=== PATIENT | female | born 1990 | race Two or more races ===

== ENCOUNTER → 2018-05-18 | Outpatient (CLI) | payer BC ==
[2018-05-18 11:39] LABS: Basophils # (auto) 0 uL; Basophils % (auto) 0.6 % (0.0-2.0); Eosinophils # (auto) 0.2 uL; Eosinophils % (auto) 2.9 % (0.0-7.0); Hematocrit 36.4 % (36.0-46.0); Hemoglobin 12.2 g/dL (12.2-16.2); Lymphocytes # (auto) 2.5 uL; Lymphocytes % (auto) 32.9 % (10.0-50.0); Mean Corpuscular Hemoglobin 30.7 pg (28.0-32.0); Mean Corpuscular Hgb Conc. 33.4 g/dL (32.0-36.0); Mean Corpuscular Volume 91.8 fL (80.0-100.0); Monocytes # (auto) 0.4 uL; Monocytes % (auto) 5.8 % (0.0-12.0); Neutrophils # (auto) 4.3 uL; Neutrophils % (auto) 57.8 % (37.0-80.0); Platelet Count (auto) 230 10^3/uL (140-450); Red Blood Cells 3.97 10^6/uL (4.0-5.20); Red Cell Distribution Width 13.5 % (11.8-14.3); White Blood Cell 7.5 10^3/uL (4.4-10.8)
[2018-05-18 12:10] LABS: Alcohol, Urine < 3.0 mg/dL (0-5); Amphetamine Screen, Urine NEGATIVE (NEGATIVE); Barbiturate Scree,Urine NEGATIVE (NEGATIVE); Benzodiazephine Screen, Urine NEGATIVE (NEGATIVE); Cannabinoid Screen, Urine NEGATIVE (NEGATIVE); Cocaine Screen, Urine NEGATIVE (NEGATIVE); Opiate Scree,Urine NEGATIVE (NEGATIVE); Phencyclidine Screen, Urine NEGATIVE (NEGATIVE)
[2018-05-19 04:06] LABS: RPR Non Reactive (Non Reactive)
== END | disposition home or self-care (01) ==
LOC: LAB 10:26
PROVIDERS: ATTEND Obstetrics & Gynecology
DX: Z34.80 Encounter for supervision of other normal pregnancy, unspecified trimester (principal); Z31.430 Encounter of female for testing for genetic disease carrier status for procreative management; Z20.2 Contact with and (suspected) exposure to infections with a predominantly sexual mode of transmission; Z3A.00 Weeks of gestation of pregnancy not specified
CPT/HCPCS: 36415; 80307; 81220; 84702; 85025; 86592; 86703; 86762; 86850; 86900; 86901; 87086; 87340

== ENCOUNTER → 2018-08-08 | Outpatient (CLI) | payer BC | END | disposition home or self-care (01) | LOC: LAB 12:19 | PROVIDERS: ATTEND Obstetrics & Gynecology | DX: O98.812 Other maternal infectious and parasitic diseases complicating pregnancy, second trimester (principal); Z3A.20 20 weeks gestation of pregnancy ==

== ENCOUNTER → 2018-09-28 | Outpatient (CLI) | payer BC ==
[2018-09-28 08:53] LABS: Basophils # (auto) 0.1 uL; Basophils % (auto) 0.7 % (0.0-2.0); Eosinophils # (auto) 0.3 uL; Eosinophils % (auto) 3.1 % (0.0-7.0); Hematocrit 30.4 % (36.0-46.0); Hemoglobin 10.1 g/dL (12.2-16.2); Lymphocytes # (auto) 3.4 uL; Lymphocytes % (auto) 31.3 % (10.0-50.0); Mean Corpuscular Hgb Conc. 33.2 g/dL (32.0-36.0); Mean Corpuscular Volume 87.6 fL (80.0-100.0); Monocytes # (auto) 0.6 uL; Monocytes % (auto) 5.2 % (0.0-12.0); Neutrophils # (auto) 6.5 uL; Neutrophils % (auto) 59.7 % (37.0-80.0); Nucleated Red Blood Cells % 0.1 %; Platelet Count (auto) 205 10^3/uL (140-450); Red Blood Cells 3.47 10^6/uL (4.0-5.20); Red Cell Distribution Width 13.5 % (11.8-14.3); White Blood Cell 10.9 10^3/uL (4.4-10.8)
== END | disposition home or self-care (01) ==
LOC: LAB 08:31
PROVIDERS: ATTEND Obstetrics & Gynecology
DX: O99.810 Abnormal glucose complicating pregnancy (principal); Z3A.27 27 weeks gestation of pregnancy
CPT/HCPCS: 36415; 82951; 85025

== ENCOUNTER → 2018-11-14 | Outpatient (CLI) | payer BC | END | disposition home or self-care (01) | LOC: LAB 16:03 | PROVIDERS: ATTEND Obstetrics & Gynecology | DX: O23.593 Infection of other part of genital tract in pregnancy, third trimester (principal); Z3A.35 35 weeks gestation of pregnancy | CPT/HCPCS: 87081 ==

== ENCOUNTER → 2018-11-15 | Outpatient (CLI) | payer BC ==
[2018-11-16 06:06] LABS: RPR Non Reactive (Non Reactive)
== END | disposition home or self-care (01) ==
LOC: LAB 14:22
PROVIDERS: ATTEND Obstetrics & Gynecology
DX: Z34.83 Encounter for supervision of other normal pregnancy, third trimester (principal); Z3A.35 35 weeks gestation of pregnancy
CPT/HCPCS: 84112; 86592

== ENCOUNTER → 2018-11-27 | Outpatient (CLI) | payer BC ==
[2018-11-27 09:14] LABS: Basophils # (auto) 0.1 uL; Basophils % (auto) 0.9 % (0.0-2.0); Eosinophils # (auto) 0.3 uL; Eosinophils % (auto) 3.2 % (0.0-7.0); Hematocrit 34.8 % (36.0-46.0); Hemoglobin 11.3 g/dL (12.2-16.2); Lymphocytes # (auto) 3.2 uL; Lymphocytes % (auto) 36.4 % (10.0-50.0); Mean Corpuscular Hemoglobin 28.4 pg (28.0-32.0); Mean Corpuscular Hgb Conc. 32.5 g/dL (32.0-36.0); Mean Corpuscular Volume 87.4 fL (80.0-100.0); Monocytes # (auto) 0.6 uL; Monocytes % (auto) 6.3 % (0.0-12.0); Neutrophils # (auto) 4.7 uL; Neutrophils % (auto) 53.2 % (37.0-80.0); Platelet Count (auto) 184 10^3/uL (140-450); Red Blood Cells 3.98 10^6/uL (4.0-5.20); White Blood Cell 8.9 10^3/uL (4.4-10.8)
== END | disposition home or self-care (01) ==
LOC: LAB 09:04
PROVIDERS: ATTEND Obstetrics & Gynecology
DX: Z34.83 Encounter for supervision of other normal pregnancy, third trimester (principal); Z3A.37 37 weeks gestation of pregnancy
CPT/HCPCS: 36415; 85025

== ENCOUNTER 2018-12-12 02:05 | Inpatient (IN) | payer BC ==
[~2018-12-12] VITALS: Ht 149.9 cm; Wt 75.3 kg
[2018-12-12] MEDS ORDERED: LACTATED RINGER'S 1,000 ML IV SCH (02:32)
[2018-12-12] MEDS ORDERED: LACT. RINGERS/OXYTOCIN 20UNITS 1,000 ML IV SCH ×2 (02:32→05:42)
[2018-12-12] MEDS ORDERED: PHISODERM TOP SOLN 240ML BTL TOP PRN (02:45)
[2018-12-12] MEDS ORDERED: DERMOPLAST 60ML BOTTLE TOP PRN (02:45)
[2018-12-12] MEDS ORDERED: WITCH HAZEL-GLYCERIN PAD TOP PRN (02:45)
[2018-12-12] MEDS ORDERED: METHYLERGONOVINE MALEATE 0.2 MG/ML AMP IM PRN (02:45)
[2018-12-12] MEDS ORDERED: LIDOCAINE 2%HCL (LOCAL ANESTH.) INJ 20ML MDV ID PRN (02:45)
[2018-12-12 03:18] LABS: Basophils # (auto) 0.1 uL; Basophils % (auto) 0.7 % (0.0-2.0); Eosinophils # (auto) 0.1 uL; Eosinophils % (auto) 1.4 % (0.0-7.0); Hematocrit 37.1 % (36.0-46.0); Hemoglobin 12.4 g/dL (12.2-16.2); Lymphocytes # (auto) 3.1 uL; Lymphocytes % (auto) 30.9 % (10.0-50.0); Mean Corpuscular Hemoglobin 28.1 pg (28.0-32.0); Mean Corpuscular Hgb Conc. 33.3 g/dL (32.0-36.0); Mean Corpuscular Volume 84.5 fL (80.0-100.0); Monocytes # (auto) 0.7 uL; Monocytes % (auto) 6.9 % (0.0-12.0); Neutrophils % (auto) 60.1 % (37.0-80.0); Nucleated Red Blood Cells % 0.2 %; Platelet Count (auto) 189 10^3/uL (140-450); Red Blood Cells 4.39 10^6/uL (4.0-5.20)
[2018-12-12 03:31] LABS: INR < 0.93 (0.9-1.15); Partial Thromboplastin Time 26.5 sec (23.64-32.05)
[2018-12-12 03:34] LABS: BUN/Creatinine Ratio 14.1; Calcium 8.8 mg/dL (8.5-10.1); Potassium 3.9 mmol/L (3.5-5.1)
[2018-12-12 03:37] LABS: Bilirubin, Total 0.4 mg/dL (0.2-1.0)
[2018-12-12] MEDS ORDERED: LACT. RINGERS/OXYTOCIN 20UNITS 500 ML IV ONE (04:42)
[2018-12-12] MEDS ORDERED: ACETAMINOPHEN 325 MG TAB PO PRN (04:45)
[2018-12-12] MEDS: IBUPROFEN 600 MG TAB PO PRN ×3 (05:04→16:26)
[2018-12-12] MEDS ORDERED: FERR-7 PO (06:39)
[2018-12-12] MEDS ORDERED: PREN-96 PO (06:39)
[2018-12-12 06:57] VITALS: BP 122/82
[2018-12-12 11:00] VITALS: BP 138/89
[2018-12-12 15:00] VITALS: BP 115/65
[2018-12-12 19:00] VITALS: BP 121/76
[2018-12-12 23:00] VITALS: BP 134/85
[2018-12-13 03:00] VITALS: BP 122/71
[2018-12-13 06:54] VITALS: BP 121/78
[2018-12-13] MEDS: IBUPROFEN 600 MG TAB PO PRN (06:57)
[2018-12-13 07:07] LABS: RPR Non Reactive (Non Reactive)
[2018-12-13 11:00] VITALS: BP 121/65
== END 2018-12-13 13:10 | disposition home or self-care (01) | DRG 807 ==
LOC: OBSVTOIN 02:05 → LDRP 02:05
PROVIDERS: ADMIT Obstetrics & Gynecology; ATTEND Obstetrics & Gynecology
PROC: 10E0XZZ Delivery of Products of Conception, External Approach (ICD-10-PCS; principal; 2018-12-12)
DX: O70.0 First degree perineal laceration during delivery (principal); Z37.0 Single live birth; Z3A.39 39 weeks gestation of pregnancy
CPT/HCPCS: 36415; 59025; 59409; 80053; 81002; 84112; 85025; 85610; 85730; 86592; 86850; 86900; 86901; 96365; 96366; G0378; J2590

== ENCOUNTER 2020-05-24 19:14 | Emergency (ER) | payer BC ==
[~2020-05-24] VITALS: Ht 154.9 cm; Wt 56.7 kg
[~2020-05-24 19:14] MED LIST: PREN-96 PO
[2020-05-24 19:37] VITALS: BP 152/104
== END 2020-05-25 01:18 | disposition home or self-care (01) ==
LOC: EEVIPCON 19:14 → ER 19:14
DX: J04.0 Acute laryngitis (principal); Z20.822 Contact with and (suspected) exposure to COVID-19
CPT/HCPCS: 36415; 87426; 87804; 99283; C9803; U0003

== ENCOUNTER → 2021-03-24 | Outpatient (CLI) | payer BC ==
[2021-03-24 09:25] LABS: Basophils # (auto) 0 10 ^3/uL (0-0.2); Basophils % (auto) 0.4 % (0.0-2.0); Eosinophils # (auto) 0.2 10 ^3/uL (0-0.8); Eosinophils % (auto) 2.6 % (0.0-7.0); Hematocrit 36.3 % (36.0-46.0); Hemoglobin 12.6 g/dL (12.2-16.2); Lymphocytes # (auto) 3.4 10 ^3/uL (0.4-5.4); Lymphocytes % (auto) 43.1 % (10.0-50.0); Mean Corpuscular Hemoglobin 32.6 pg (28.0-32.0); Mean Corpuscular Hgb Conc. 34.8 g/dL (32.0-36.0); Mean Corpuscular Volume 93.9 fL (80.0-100.0); Monocytes # (auto) 0.3 10 ^3/uL (0-1.3); Monocytes % (auto) 4.1 % (0.0-12.0); Neutrophils # (auto) 3.9 10 ^3/uL (1.6-8.6); Neutrophils % (auto) 49.8 % (37.0-80.0); Nucleated Red Blood Cells % 0.1 %; Red Blood Cells 3.87 10^6/uL (4.0-5.20); Red Cell Distribution Width 13.1 % (11.8-14.3); White Blood Cell 7.9 10^3/uL (4.4-10.8)
[2021-03-24 09:49] LABS: Alcohol, Urine < 3.0 mg/dL (0-10); Amphetamine Screen, Urine NEGATIVE (NEGATIVE); Barbiturate Scree,Urine NEGATIVE (NEGATIVE); Benzodiazephine Screen, Urine NEGATIVE (NEGATIVE); Cannabinoid Screen, Urine NEGATIVE (NEGATIVE); Cocaine Screen, Urine NEGATIVE (NEGATIVE); Opiate Scree,Urine NEGATIVE (NEGATIVE); Phencyclidine Screen, Urine NEGATIVE (NEGATIVE)
== END | disposition home or self-care (01) ==
LOC: LAB 08:35
PROVIDERS: ATTEND Obstetrics & Gynecology
DX: Z34.80 Encounter for supervision of other normal pregnancy, unspecified trimester (principal); Z31.430 Encounter of female for testing for genetic disease carrier status for procreative management
CPT/HCPCS: 36415; 80307; 83036; 84112; 85025; 86703; 86850; 86900; 86901; 87086

== ENCOUNTER → 2021-04-05 | Outpatient (CLI) | payer BC | END | disposition home or self-care (01) | LOC: LAB 07:46 | PROVIDERS: ATTEND Internal Medicine | DX: Z20.822 Contact with and (suspected) exposure to COVID-19 (principal) | CPT/HCPCS: C9803; U0003 ==

== ENCOUNTER → 2021-07-09 | Outpatient (CLI) | payer BC ==
[2021-07-09 09:19] LABS: Basophils # (auto) 0.1 10 ^3/uL (0-0.2); Eosinophils # (auto) 0.2 10 ^3/uL (0-0.8); Eosinophils % (auto) 2.5 % (0.0-7.0); Hemoglobin 10.3 g/dL (12.2-16.2); Lymphocytes # (auto) 3.3 10 ^3/uL (0.4-5.4); Lymphocytes % (auto) 33.3 % (10.0-50.0); Mean Corpuscular Hemoglobin 31.1 pg (28.0-32.0); Mean Corpuscular Hgb Conc. 34.2 g/dL (32.0-36.0); Mean Corpuscular Volume 90.9 fL (80.0-100.0); Monocytes # (auto) 0.6 10 ^3/uL (0-1.3); Monocytes % (auto) 5.6 % (0.0-12.0); Neutrophils # (auto) 5.7 10 ^3/uL (1.6-8.6); Neutrophils % (auto) 57.6 % (37.0-80.0); Nucleated Red Blood Cells % 0.1 %; Red Cell Distribution Width 12.7 % (11.8-14.3); White Blood Cell 9.9 10^3/uL (4.4-10.8)
[2021-07-10 07:06] LABS: RPR Non Reactive (Non Reactive)
== END | disposition home or self-care (01) ==
LOC: LAB 09:00
PROVIDERS: ATTEND Obstetrics & Gynecology
DX: Z34.80 Encounter for supervision of other normal pregnancy, unspecified trimester (principal)
CPT/HCPCS: 36415; 82951; 85025; 86592

== ENCOUNTER → 2021-08-24 | Outpatient (CLI) | payer BC ==
[2021-08-24 11:08] LABS: Basophils # (auto) 0.1 10 ^3/uL (0-0.2); Basophils % (auto) 0.7 % (0.0-2.0); Eosinophils # (auto) 0.3 10 ^3/uL (0-0.8); Eosinophils % (auto) 3.1 % (0.0-7.0); Hemoglobin 9.6 g/dL (12.2-16.2); Lymphocytes # (auto) 2.7 10 ^3/uL (0.4-5.4); Lymphocytes % (auto) 32.4 % (10.0-50.0); Mean Corpuscular Hemoglobin 28.4 pg (28.0-32.0); Mean Corpuscular Volume 86.1 fL (80.0-100.0); Monocytes # (auto) 0.5 10 ^3/uL (0-1.3); Monocytes % (auto) 6.5 % (0.0-12.0); Neutrophils # (auto) 4.8 10 ^3/uL (1.6-8.6); Neutrophils % (auto) 57.3 % (37.0-80.0); Nucleated Red Blood Cells % 0.2 %; Red Blood Cells 3.37 10^6/uL (4.0-5.20); Red Cell Distribution Width 13.8 % (11.8-14.3); White Blood Cell 8.4 10^3/uL (4.4-10.8)
[2021-08-25 07:16] LABS: RPR Non Reactive (Non Reactive)
== END | disposition home or self-care (01) ==
LOC: LAB 10:40
PROVIDERS: ATTEND Obstetrics & Gynecology
DX: Z34.80 Encounter for supervision of other normal pregnancy, unspecified trimester (principal); Z3A.00 Weeks of gestation of pregnancy not specified
CPT/HCPCS: 36415; 84112; 85025; 86592; 87081

== ENCOUNTER 2021-09-15 10:45 | Observation (INO) | payer BC ==
[2021-09-15 12:42] LABS: INR 0.94 (0.9-1.15); Partial Thromboplastin Time 25.7 sec (23.6-33.0)
[2021-09-15 12:45] LABS: Basophils # (auto) 0 10 ^3/uL (0-0.2); Basophils % (auto) 0.6 % (0.0-2.0); Eosinophils # (auto) 0.1 10 ^3/uL (0-0.8); Eosinophils % (auto) 1.9 % (0.0-7.0); Hematocrit 30.4 % (36.0-46.0); Hemoglobin 9.8 g/dL (12.2-16.2); Lymphocytes % (auto) 28.9 % (10.0-50.0); Mean Corpuscular Hemoglobin 27.7 pg (28.0-32.0); Mean Corpuscular Hgb Conc. 32.3 g/dL (32.0-36.0); Mean Corpuscular Volume 85.9 fL (80.0-100.0); Monocytes # (auto) 0.5 10 ^3/uL (0-1.3); Neutrophils # (auto) 4.3 10 ^3/uL (1.6-8.6); Neutrophils % (auto) 61.6 % (37.0-80.0); Nucleated Red Blood Cells % 0.1 %; Red Blood Cells 3.54 10^6/uL (4.0-5.20); Red Cell Distribution Width 15.9 % (11.8-14.3); White Blood Cell 7.1 10^3/uL (4.4-10.8)
[2021-09-15 12:46] LABS: Calcium 8.2 mg/dL (8.5-10.1); Potassium 3.8 mmol/L (3.5-5.1)
[2021-09-15 12:53] LABS: Albumin 2.5 g/dL (3.4-5.0); BUN/Creatinine Ratio 19.6; Bilirubin, Total 0.4 mg/dL (0.2-1.0); Total Protein 6.2 g/dL (6.4-8.2)
[2021-09-15 13:06] LABS: Alcohol, Urine < 3.0 mg/dL (0-10); Amphetamine Screen, Urine NEGATIVE (NEGATIVE); Barbiturate Scree,Urine NEGATIVE (NEGATIVE); Benzodiazephine Screen, Urine NEGATIVE (NEGATIVE); Cannabinoid Screen, Urine NEGATIVE (NEGATIVE); Cocaine Screen, Urine NEGATIVE (NEGATIVE); Opiate Scree,Urine NEGATIVE (NEGATIVE); Phencyclidine Screen, Urine NEGATIVE (NEGATIVE); Protein, Urine 14.5 mg/dL (0.0-11.9)
[2021-09-15 13:47] LABS: Urine Bacteria FEW /hpf (None Seen); Urine Blood Negative /uL (Negative); Urine Specific Gravity 1.016 (1.001-1.035); Urine WBC 1 /hpf (0 - 5)
== END 2021-09-15 14:08 | disposition home or self-care (01) ==
LOC: UNDOADMOB 10:45 → LDRP 10:45 → UNDODISOB 14:08
PROVIDERS: ADMIT Obstetrics & Gynecology; ATTEND Obstetrics & Gynecology
DX: O13.3 Gestational [pregnancy-induced] hypertension without significant proteinuria, third trimester (principal); Z3A.39 39 weeks gestation of pregnancy; Z79.899 Other long term (current) drug therapy
CPT/HCPCS: 36415; 59025; 80053; 80307; 81001; 81002; 82570; 84156; 84550; 85025; 85610; 85730; 94760; G0378

== ENCOUNTER 2021-09-16 21:15 | Inpatient (IN) | payer BC ==
[~2021-09-16] VITALS: Ht 149.9 cm; Wt 70.8 kg
[2021-09-16] MEDS ORDERED: PHISODERM TOP SOLN 240ML BTL TOP PRN (22:00)
[2021-09-16] MEDS ORDERED: PROMETHAZINE HCL 25 MG/ML 1ML IV PRN (22:00)
[2021-09-16] MEDS ORDERED: WITCH HAZEL-GLYCERIN PAD TOP PRN (22:00)
[2021-09-16] MEDS ORDERED: DERMOPLAST 60ML BOTTLE TOP PRN (22:00)
[2021-09-16] MEDS ORDERED: BUTORPHANOL TARTRATE 2 MG/1 ML VIAL IV PRN ×2 (22:00)
[2021-09-16] MEDS ORDERED: LIDOCAINE 2%HCL (LOCAL ANESTH.) INJ 10ml MDV IJ PRN (22:00)
[2021-09-16] MEDS ORDERED: AMPICILLIN SOD 2GM INJ 2 GM in SODIUM CHL 0.9% 100 ML IV ONE (22:00)
[2021-09-16 22:32] LABS: Basophils # (auto) 0.1 10 ^3/uL (0-0.2); Basophils % (auto) 1.2 % (0.0-2.0); Eosinophils # (auto) 0.1 10 ^3/uL (0-0.8); Eosinophils % (auto) 1.4 % (0.0-7.0); Hematocrit 33.2 % (36.0-46.0); Hemoglobin 10.5 g/dL (12.2-16.2); Lymphocytes # (auto) 2.7 10 ^3/uL (0.4-5.4); Lymphocytes % (auto) 29.8 % (10.0-50.0); Mean Corpuscular Hemoglobin 27.2 pg (28.0-32.0); Mean Corpuscular Hgb Conc. 31.7 g/dL (32.0-36.0); Mean Corpuscular Volume 85.6 fL (80.0-100.0); Monocytes # (auto) 0.4 10 ^3/uL (0-1.3); Neutrophils # (auto) 5.7 10 ^3/uL (1.6-8.6); Neutrophils % (auto) 63.6 % (37.0-80.0); Nucleated Red Blood Cells % 0.1 %; Red Blood Cells 3.88 10^6/uL (4.0-5.20); Red Cell Distribution Width 15.9 % (11.8-14.3)
[2021-09-16 22:40] LABS: Urine Bacteria FEW /hpf (None Seen); Urine Blood Negative /uL (Negative); Urine Specific Gravity 1.028 (1.001-1.035); Urine WBC 1 /hpf (0 - 5)
[2021-09-16 22:49] LABS: INR 0.92 (0.9-1.15); Partial Thromboplastin Time 25.3 sec (23.6-33.0)
[2021-09-16] MEDS: LACTATED RINGER'S 1,000 ML IV SCH (22:52)
[2021-09-16 22:54] LABS: Albumin 2.8 g/dL (3.4-5.0); BUN/Creatinine Ratio 13.6; Calcium 8.6 mg/dL (8.5-10.1); Potassium 3.8 mmol/L (3.5-5.1)
[2021-09-16 22:56] LABS: Bilirubin, Total 0.3 mg/dL (0.2-1.0); Total Protein 6.6 g/dL (6.4-8.2)
[2021-09-16 22:56] LABS: Amphetamine Screen, Urine NEGATIVE (NEGATIVE); Barbiturate Scree,Urine NEGATIVE (NEGATIVE); Benzodiazephine Screen, Urine NEGATIVE (NEGATIVE); Cannabinoid Screen, Urine NEGATIVE (NEGATIVE); Cocaine Screen, Urine NEGATIVE (NEGATIVE); Opiate Scree,Urine NEGATIVE (NEGATIVE); Phencyclidine Screen, Urine NEGATIVE (NEGATIVE)
[2021-09-16 22:58] LABS: Alcohol, Urine < 3.0 mg/dL (0-10)
[2021-09-17] MEDS: miSOPROStol 50 MCG per PRE-CUT 1/2 TAB PO PRN ×2 (00:15→04:13)
[2021-09-17] MEDS: AMPICILLIN INJ 1 GM in SODIUM CHL 0.9% 50 ML IV SCH ×2 (01:54→06:05)
[2021-09-17 03:29] LABS: Creatinine, Urine 151 mg/dL (30.0-125.0); Protein, Urine 26.5 mg/dL (0.0-11.9)
[2021-09-17] MEDS ORDERED: PROMETHAZINE HCL 25 MG/ML 1ML IM ONE (05:45)
[2021-09-17] MEDS ORDERED: PROMETHAZINE HCL 25 MG/ML 1ML IV ONE (06:15)
[2021-09-17] MEDS: LACTATED RINGER'S 1,000 ML IV SCH ×3 (07:15→15:10)
[2021-09-17] MEDS ORDERED: LACT. RINGERS/OXYTOCIN 20UNITS 1,000 ML IV SCH (08:15)
[2021-09-17] MEDS ORDERED: LACT. RINGERS/OXYTOCIN 20UNITS 500 ML IV ONE ×2 (08:15→08:45)
[2021-09-17] MEDS ORDERED: TERBUTALINE SULFATE 1 MG/ML 1ML VIAL SC PRN (08:15)
[2021-09-17] MEDS ORDERED: ONDANSETRON HCL 4 MG/2 ML VIAL IV PRN (08:30)
[2021-09-17] MEDS ORDERED: METHYLERGONOVINE MALEATE 0.2 MG/ML AMP IM ONE (09:17)
[2021-09-17] MEDS: IBUPROFEN 600 MG TAB PO PRN (11:14)
[2021-09-17] MEDS: ceFAZolin 1GM/50ML 50 ML IV SCH ×2 (11:15→18:54)
[2021-09-17] MEDS: ACETAMINOPHEN 325 MG TAB PO PRN (12:54)
[2021-09-17 19:30] VITALS: BP 130/95
[2021-09-17 23:00] VITALS: BP 130/81
[2021-09-18] MEDS: IBUPROFEN 600 MG TAB PO PRN (00:30)
[2021-09-18 03:00] VITALS: BP 125/70
[2021-09-18] MEDS: ceFAZolin 1GM/50ML 50 ML IV SCH ×2 (03:07→11:00)
[2021-09-18] MEDS: ACETAMINOPHEN 325 MG TAB PO PRN (03:14)
[2021-09-18 07:04] VITALS: BP 116/77
[2021-09-18 08:06] LABS: RPR Non Reactive (Non Reactive)
[2021-09-18 11:00] VITALS: BP 116/77
== END 2021-09-18 13:35 | disposition home or self-care (01) | DRG 768 ==
LOC: UNDOADMIN 21:15 → EEVIPCON 21:15 → LDRP 21:15
PROVIDERS: ADMIT Obstetrics & Gynecology; ATTEND Obstetrics & Gynecology
PROC: 0U5B8ZZ Destruction of Endometrium, Via Natural or Artificial Opening Endoscopic (ICD-10-PCS; principal; 2021-09-17)
PROC: 10E0XZZ Delivery of Products of Conception, External Approach (ICD-10-PCS; 2021-09-17)
PROC: 0UDB8ZZ Extraction of Endometrium, Via Natural or Artificial Opening Endoscopic (ICD-10-PCS; 2021-09-17)
DX: O42.92 Full-term premature rupture of membranes, unspecified as to length of time between rupture and onset of labor (principal); Z37.0 Single live birth; Z3A.39 39 weeks gestation of pregnancy; Z20.822 Contact with and (suspected) exposure to COVID-19
CPT/HCPCS: 36415; 59025; 59409; 80053; 80307; 81001; 82570; 84156; 85025; 85610; 85730; 86592; 86850; 86900; 86901; 94760; 96360; 96361; 96366; 96372; 96374; 96375; G0378; J0690; J2590